=== PATIENT | male | born 1990 | race Caucasian/White ===

== ENCOUNTER 2021-06-26 07:52 | Emergency (ER) | payer BC, MEDICAID ==
[~2021-06-26] VITALS: Ht 182.9 cm; Wt 181.4 kg
[~2021-06-26 07:52] MED LIST: TAMIFLU75 MG PO
[2021-06-26 11:25] LABS: RED BLOOD COUNT 4.86 M/UL (4.20-5.50); WHITE BLOOD COUNT 5.7 K/UL (4.5-11.0)
[2021-06-26 11:50] LABS: BUN/CREATININE RATIO 16 (0-10)
== END 2021-06-26 14:00 | disposition home or self-care (01) ==
LOC: ER1 07:52
PROVIDERS: Physician Assistant
DX: Z23 Encounter for immunization (principal); U07.1 COVID-19; R55 Syncope and collapse; I10 Essential (primary) hypertension; Z87.891 Personal history of nicotine dependence
CPT/HCPCS: 70450; 71045; 80053; 82550; 82553; 82962; 83874; 84484; 85025; 85379; 99285; M0243; Q9967